=== PATIENT | female | born 1935 | race African-American/Black ===

== ENCOUNTER 2016-11-24 09:24 | Emergency (ER) | payer MEDICARE, OTHER ==
[~2016-11-24] VITALS: Ht 149.9 cm; Wt 98.0 kg
[~2016-11-24 09:24] MED LIST: ALEN70TA13 PO; GABA-531 PO; METO25TA6 PO; MIR25 PO; MONT10TA21 PO; NIFE90TA43 PO; OMEP20CA10 PO; TRAM50TA3 PO; fish oil; methimazole PO
[2016-11-24] MEDS ORDERED: KETOROLAC 60MG/2ML VIAL IM ONE (13:45)
[2016-11-24 14:29] VITALS: BP 122/51
== END 2016-11-24 15:04 | disposition home or self-care (01) ==
LOC: ER 10:56
DX: M25.511 Pain in right shoulder (principal); M79.642 Pain in left hand; Z88.6 Allergy status to analgesic agent; Z79.899 Other long term (current) drug therapy; M19.90 Unspecified osteoarthritis, unspecified site; I10 Essential (primary) hypertension; M54.2 Cervicalgia
CPT/HCPCS: 72125; 73030; 73110; 73130; 96372; 99284; J1885

== ENCOUNTER 2017-01-01 17:40 | Emergency (ER) | payer MEDICARE, OTHER ==
[~2017-01-01] VITALS: Ht 149.9 cm; Wt 141.0 kg
[2017-01-01] MEDS ORDERED: CEPHALEXIN 500MG CAPSULE PO ONE (18:15)
[2017-01-01] MEDS ORDERED: HYDROCODONE/ACETAMINOPHEN 5/325MG TABLET PO ONE (18:15)
[2017-01-01 18:43] LABS: BASOPHILS % 0.6 % (0.0-2.0); EOSINOPHILS % 3.9 % (0.0-5.0); HEMATOCRIT. 36.2 % (36.0-48.0); HEMOGLOBIN. 11.9 g/dL (12.0-16.0); LYMPHOCYTES % 32.3 % (20.0-50.0); MEAN CORPUSCULAR HEMOGLOBIN 32.5 pg (28.0-32.0); MEAN CORPUSCULAR VOLUME 98.6 fL (81.0-99.0); MONOCYTES % 11.9 % (2.0-8.0); NEUTROPHILS % 51.3 % (40.0-76.0); PLATELET 232 x1000/uL (130-400); RED BLOOD CELL COUNT 3.67 mill/uL (4.2-5.4); RED CELL DISTRIBUTION WIDTH 15.4 % (11.6-14.6); WHITE BLOOD COUNT 4.4 x1000/uL (4.5-11.0)
[2017-01-01 18:51] LABS: CHLORIDE 106 mEq/L (98-107); INDEX HEMOLYSI 1 (1-3); INDEX ICTERIC 1 (1-4); INDEX LIPEMIC 1 (1-3); PARTIAL THROMBOPLASTIN TIME 27.1 sec (24.0-34.0); PROTHROMBIN TIME 10.6 sec
[2017-01-01 18:59] LABS: ALANINE AMINOTRANSFERASE 19 IU/L (13-61); ALBUMIN 3.3 g/dL (3.4-5.0); ANION GAP 10; CALCIUM 9.2 mg/dL (8.5-10.1); CARBON DIOXIDE 31 mEq/L (21-32); UREA NITROGEN BLOOD 21 mg/dL (7-21); eGFR > 60 mL/min (>60)
[2017-01-01 21:11] VITALS: BP 162/70
== END 2017-01-01 21:14 | disposition home or self-care (01) ==
LOC: ER 18:17
DX: L02.512 Cutaneous abscess of left hand (principal); L02.511 Cutaneous abscess of right hand; G56.03 Carpal tunnel syndrome, bilateral upper limbs; Z88.6 Allergy status to analgesic agent; Z79.899 Other long term (current) drug therapy; I10 Essential (primary) hypertension; M19.90 Unspecified osteoarthritis, unspecified site
CPT/HCPCS: 36415; 80053; 85025; 85610; 85651; 85730; 99284

== ENCOUNTER 2017-06-26 15:36 | Emergency (ER) | payer MEDICARE, OTHER ==
[~2017-06-26] VITALS: Ht 149.9 cm; Wt 101.0 kg
[~2017-06-26 15:36] MED LIST changes: -ALEN70TA13 PO; +ALEN70TA46 PO
[2017-06-26] MEDS ORDERED: ACETAMINOPHEN 500MG TABLET PO ONE (17:15)
[2017-06-26 18:34] VITALS: BP 135/69
== END 2017-06-26 18:34 | disposition home or self-care (01) ==
LOC: ER 16:16
DX: M19.042 Primary osteoarthritis, left hand (principal); M19.041 Primary osteoarthritis, right hand; R03.0 Elevated blood-pressure reading, without diagnosis of hypertension; Z90.710 Acquired absence of both cervix and uterus; Z88.8 Allergy status to other drugs, medicaments and biological substances; Z79.899 Other long term (current) drug therapy
CPT/HCPCS: 99283

== ENCOUNTER 2021-03-20 10:30 | Inpatient (IN) | payer OTHER ==
[~2021-03-20] VITALS: Ht 149.9 cm; Wt 79.8 kg
[~2021-03-20 10:30] MED LIST changes: -ALEN70TA46 PO; +ALEN70TA79 PO; -GABA-531 PO; +GABA-532 PO; -OMEP20CA10 PO; +OMEP20CA14 PO
[2021-03-20] MEDS ORDERED: ASPIRIN 81MG TABLET PO ONE (11:15)
[2021-03-20] MEDS ORDERED: DILTIAZEM HCL 5MG/ML 5ML VIAL IV ONE (11:15)
[2021-03-20 11:42] LABS: BASOPHILS % 0.7 % (0.0-2.0); EOSINOPHILS % 0.2 % (0.0-5.0); HEMATOCRIT. 35.7 % (36.0-48.0); HEMOGLOBIN. 11.8 g/dL (12.0-16.0); MEAN CORPUSCULAR HEMOGLOBIN 31.7 pg (28.0-32.0); MEAN CORPUSCULAR VOLUME 95.3 fL (81.0-99.0); MEAN PLATELET VOLUME 8.9 fl (7.4-10.4); MONOCYTES % 9.2 % (2.0-8.0); NEUTROPHILS % 73.9 % (40.0-76.0); PLATELET 330 x1000/uL (130-400); RED BLOOD CELL COUNT 3.74 mill/uL (4.2-5.4); RED CELL DISTRIBUTION WIDTH 16.7 % (11.6-14.6)
[2021-03-20] MEDS ORDERED: DILTIAZEM HCL 5MG/ML 5ML VIAL IV NR (15:30)
[2021-03-20] MEDS ORDERED: DILTIAZEM HCL 120MG CAPSULE CD 24HR PO NR (15:30)
[2021-03-20 15:57] LABS: CHLORIDE 109 mEq/L (98-107)
[2021-03-20] MEDS ORDERED: MAGNESIUM/ALUMINUM HYDROXIDE/SIMETHICONE 30ML UDC PO PRN (16:30)
[2021-03-20] MEDS ORDERED: LORAZEPAM 0.5MG TABLET PO PRN (16:30)
[2021-03-20] MEDS ORDERED: ONDANSETRON HCL 4MG/2ML INJ IV PRN (16:30)
[2021-03-20] MEDS ORDERED: ACETAMINOPHEN 650MG SUPP PR PRN (16:30)
[2021-03-20] MEDS ORDERED: CLONIDINE 0.1MG TABLET PO PRN (16:30)
[2021-03-20] MEDS ORDERED: IPRATROPIUM/ALBUTEROL 0.5-3(2.5)MG/3ML NEB NEB PRN (16:30)
[2021-03-20] MEDS ORDERED: HYDROCODONE/ACETAMINOPHEN 5/325MG TABLET PO PRN (16:30)
[2021-03-20] MEDS ORDERED: DIPHENHYDRAMINE 50MG/ML VIAL IV PRN (16:30)
[2021-03-20] MEDS ORDERED: NA PHOS,M-B/NA PHOS,DI-BA ENEMA 118ML PR PRN (16:30)
[2021-03-20] MEDS ORDERED: DOCUSATE SODIUM 100MG CAPSULE PO PRN (16:30)
[2021-03-20] MEDS ORDERED: GUAIFENESIN 200MG/10ML SUGAR FREE UDC PO PRN (16:30)
[2021-03-20] MEDS ORDERED: ACETAMINOPHEN 325MG TABLET PO PRN (16:30)
[2021-03-20] MEDS ORDERED: CEFTRIAXONE 1 G PREMIX 50 ML IV SCH (17:00)
[2021-03-20] MEDS ORDERED: NALOXONE HCL 0.4MG/ML VIAL IV PRN (17:00)
[2021-03-20] MEDS: PANTOPRAZOLE SODIUM 40 MG/VIAL IV SCH (17:21)
[2021-03-20] MEDS: DEXAMETHASONE 10 MG/ML VIAL IV SCH (17:21)
[2021-03-20] MEDS ORDERED: DILTIAZEM HCL 125 MG in DEXT 5% WATER 100 ML IV PRN ×2 (17:27→18:00)
[2021-03-20] MEDS ORDERED: FUROSEMIDE 40MG/4ML VIAL IVP SCH (17:30)
[2021-03-20 17:55] LABS: BG CARBOXYHEMOGLOBIN 0.4 % (0.5-1.5); BG DEOXYHEMOGLOBIN 3.2 % (0.0-5.0); BG FRACTION INSPIRED OXYGEN 32; BG OXYGEN SATURATION 96.8 % (92.0-98.5); BG OXYHEMOGLOBIN 96.4 % (94.0-97.0); BG PCO2 56.3 mmHg (35.0-45.0); BG PO2 93.8 mmHg (75.0-100.0); BG SAMPLE SITE RIGHT RADIAL; BG TOTAL HEMOGLOBIN 12.7 g/dL (12.0-18.0); BG VENT MODE NASAL CANNULA
[2021-03-20] MEDS ORDERED: AZITHROMYCIN 500 MG in DEXT 5% WATER 250 ML IV SCH (18:00)
[2021-03-20] MEDS: DILTIAZEM HCL 60MG TABLET PO SCH (18:34)
[2021-03-20] MEDS: IPRATROPIUM/ALBUTEROL 0.5-3(2.5)MG/3ML NEB NEB SCH (19:42)
[2021-03-20 19:58] LABS: D-DIMER 1.81 mg/L FEU (<0.50); INR 1.2; PROTHROMBIN TIME 12.7 sec (9.6-11.0)
[2021-03-20 20:25] LABS: T4 FREE 1.28 ng/dL (0.76-1.46)
[2021-03-20] MEDS: ENOXAPARIN 80MG/0.8ML SYR SUBCUT SCH (22:11)
[2021-03-20] MEDS: FUROSEMIDE 40MG/4ML VIAL IVP SCH (22:11)
[2021-03-20 23:25] LABS: CREATINE KINASE MB FRACTION < 1.0 ng/mL (0.5-3.6)
[2021-03-20 23:26] LABS: CREATINE KINASE 40 IU/L (26-192)
[2021-03-21] MEDS: DILTIAZEM HCL 60MG TABLET PO SCH ×4 (00:26→18:00)
[2021-03-21] MEDS: IPRATROPIUM/ALBUTEROL 0.5-3(2.5)MG/3ML NEB NEB SCH ×4 (02:38→19:46)
[2021-03-21 04:37] LABS: BASOPHILS % 0.3 % (0.0-2.0); HEMATOCRIT. 35.1 % (36.0-48.0); HEMOGLOBIN. 11.7 g/dL (12.0-16.0); LYMPHOCYTES % 10.4 % (20.0-50.0); MEAN CORPUSCULAR HEMOGLOBIN 31.5 pg (28.0-32.0); MEAN CORPUSCULAR VOLUME 94.6 fL (81.0-99.0); MEAN PLATELET VOLUME 8.8 fl (7.4-10.4); MONOCYTES % 2.8 % (2.0-8.0); NEUTROPHILS % 86.5 % (40.0-76.0); PLATELET 288 x1000/uL (130-400); RED BLOOD CELL COUNT 3.72 mill/uL (4.2-5.4); RED CELL DISTRIBUTION WIDTH 16.7 % (11.6-14.6)
[2021-03-21 04:46] LABS: INR 1.2
[2021-03-21 04:47] LABS: CHLORIDE 101 mEq/L (98-107)
[2021-03-21 04:57] LABS: LDL CHOLESTEROL 77 mg/dL (5-100)
[2021-03-21 04:59] LABS: HDL CHOLESTEROL 53 mg/dL (40-59)
[2021-03-21 05:02] LABS: CREATINE KINASE 30 IU/L (26-192); CREATINE KINASE MB FRACTION < 1.0 ng/mL (0.5-3.6); T4 FREE 1.33 ng/dL (0.76-1.46)
[2021-03-21 05:08] LABS: TOTAL IRON BINDING CAPACITY 287 ug/dL (250-450)
[2021-03-21 05:24] LABS: FERRITIN 104 ng/mL (10-291)
[2021-03-21 07:36] LABS: VITAMIN B12 SERUM 725 pg/mL (211-911)
[2021-03-21] MEDS: DEXAMETHASONE 10 MG/ML VIAL IV SCH (10:12)
[2021-03-21] MEDS: PANTOPRAZOLE SODIUM 40 MG/VIAL IV SCH (10:14)
[2021-03-21] MEDS: FUROSEMIDE 40MG/4ML VIAL IVP SCH (10:16)
[2021-03-21 10:36] LABS: BG BASE EXCESS 8.2 mmol/L (-2.0-2.0); BG CARBOXYHEMOGLOBIN 0.3 % (0.5-1.5); BG DEOXYHEMOGLOBIN 5.5 % (0.0-5.0); BG FRACTION INSPIRED OXYGEN 40; BG HCO3 ACT 33.9 mmol/L (22.0-26.0); BG OXYGEN SATURATION 94.5 % (92.0-98.5); BG OXYHEMOGLOBIN 94.2 % (94.0-97.0); BG PCO2 52.2 mmHg (35.0-45.0); BG PH 7.431 (7.350-7.450); BG PO2 72.9 mmHg (75.0-100.0); BG SAMPLE SITE RIGHT RADIAL; BG TOTAL HEMOGLOBIN 12.5 g/dL (12.0-18.0); BG VENT MODE MASK - BIPAP
[2021-03-21] MEDS ORDERED: POTASSIUM CHLORIDE 20MEQ TABLET SR PO NR (15:00)
[2021-03-21] MEDS ORDERED: MAGNESIUM 1 G PREMIX 100 ML IV SCH (15:00)
[2021-03-21] MEDS: CEFTRIAXONE 1,000 MG in DEXTROSE 5% WATER 50 ML IV SCH (20:24)
[2021-03-21] MEDS: AZITHROMYCIN 500 MG in DEXT 5% WATER 250 ML IV SCH (23:59)
[2021-03-22] VITALS (7 sets, daily range): BP systolic 109–142; BP diastolic 56–88
[2021-03-22] MEDS: ENOXAPARIN 80MG/0.8ML SYR SUBCUT SCH (01:30)
[2021-03-22] MEDS: FUROSEMIDE 40MG/4ML VIAL IVP SCH ×3 (01:30→20:51)
[2021-03-22] MEDS: DILTIAZEM HCL 60MG TABLET PO SCH ×5 (01:31→23:34)
[2021-03-22] MEDS: IPRATROPIUM/ALBUTEROL 0.5-3(2.5)MG/3ML NEB NEB SCH ×4 (02:25→15:04)
[2021-03-22 08:16] LABS: HEMATOCRIT. 35.2 % (36.0-48.0); HEMOGLOBIN. 11.6 g/dL (12.0-16.0); MEAN CORPUSCULAR HEMOGLOBIN 31.3 pg (28.0-32.0); MEAN CORPUSCULAR VOLUME 94.9 fL (81.0-99.0); MEAN PLATELET VOLUME 9.1 fl (7.4-10.4); PLATELET 274 x1000/uL (130-400); RED BLOOD CELL COUNT 3.71 mill/uL (4.2-5.4); RED CELL DISTRIBUTION WIDTH 16.8 % (11.6-14.6)
[2021-03-22 08:35] LABS: CHLORIDE 100 mEq/L (98-107)
[2021-03-22] MEDS: PANTOPRAZOLE SODIUM 40 MG/VIAL IV SCH (09:58)
[2021-03-22] MEDS: DEXAMETHASONE 10 MG/ML VIAL IV SCH (09:58)
[2021-03-22] MEDS: MIDODRINE HCL 2.5MG TABLET PO SCH ×2 (15:30→22:00)
[2021-03-22 16:33] LABS: BG BASE EXCESS 6.3 mmol/L (-2.0-2.0); BG CARBOXYHEMOGLOBIN 0.5 % (0.5-1.5); BG DEOXYHEMOGLOBIN 7.6 % (0.0-5.0); BG FRACTION INSPIRED OXYGEN 21; BG HCO3 ACT 30.5 mmol/L (22.0-26.0); BG METHEMOGLOBIN 0.3 % (0.0-1.5); BG OXYGEN SATURATION 92.3 % (92.0-98.5); BG OXYHEMOGLOBIN 91.6 % (94.0-97.0); BG PCO2 42.3 mmHg (35.0-45.0); BG PH 7.476 (7.350-7.450); BG PO2 61.1 mmHg (75.0-100.0); BG SAMPLE SITE RIGHT RADIAL; BG TOTAL HEMOGLOBIN 13.5 g/dL (12.0-18.0); BG VENT MODE ROOM AIR
[2021-03-22] MEDS: CEFTRIAXONE 1,000 MG in DEXTROSE 5% WATER 50 ML IV SCH (18:23)
[2021-03-22] MEDS: FAMOTIDINE 20MG/2ML VIAL IV SCH (20:51)
[2021-03-22] MEDS: AZITHROMYCIN 500 MG in DEXT 5% WATER 250 ML IV SCH (20:51)
[2021-03-22] MEDS: DEXT 5%/0.45% NACL 1000ML 1,000 ML IV SCH (23:34)
[2021-03-23] VITALS (18 sets, daily range): BP systolic 104–156; BP diastolic 59–90
[2021-03-23] MEDS: MIDODRINE HCL 2.5MG TABLET PO SCH ×3 (05:14→21:55)
[2021-03-23] MEDS: DILTIAZEM HCL 60MG TABLET PO SCH ×3 (06:00→17:25)
[2021-03-23 06:07] LABS: INR 1.1; PROTHROMBIN TIME 11.8 sec (9.6-11.0)
[2021-03-23 06:19] LABS: HEMOGLOBIN. 11.9 g/dL (12.0-16.0); MEAN CORPUSCULAR HEMOGLOBIN 31.2 pg (28.0-32.0); MEAN CORPUSCULAR VOLUME 94.9 fL (81.0-99.0); PLATELET 279 x1000/uL (130-400); RED CELL DISTRIBUTION WIDTH 16.5 % (11.6-14.6)
[2021-03-23 06:44] LABS: CHLORIDE 99 mEq/L (98-107)
[2021-03-23] MEDS: IPRATROPIUM/ALBUTEROL 0.5-3(2.5)MG/3ML NEB NEB SCH ×3 (07:47→21:54)
[2021-03-23] MEDS ORDERED: LIDOCAINE HCL 1% 20ML VIAL (Pyxis) INJ ONE ×2 (09:02→09:10)
[2021-03-23] MEDS ORDERED: SODIUM BICARBONATE 4% (2.4MEQ) 5ML VIAL IV ONE (09:02)
[2021-03-23] MEDS ORDERED: FENTANYL CITRATE/PF 50MCG/ML 2ML VIAL ONE (09:02)
[2021-03-23] MEDS ORDERED: FENTANYL CITRATE/PF 50MCG/ML 2ML VIAL IV ONE (11:45)
[2021-03-23] MEDS: DEXAMETHASONE 10 MG/ML VIAL IV SCH (12:16)
[2021-03-23] MEDS: FUROSEMIDE 40MG/4ML VIAL IVP SCH ×2 (12:16→21:55)
[2021-03-23] MEDS: FAMOTIDINE 20MG/2ML VIAL IV SCH ×2 (12:16→21:54)
[2021-03-23] MEDS: CEFTRIAXONE 1,000 MG in DEXTROSE 5% WATER 50 ML IV SCH (17:25)
[2021-03-23] MEDS: DEXT 5%/0.45% NACL 1000ML 1,000 ML IV SCH (17:25)
[2021-03-23 18:40] LABS: PLATELET ESTIMATE NORMAL
[2021-03-23] MEDS ORDERED: IOHEXOL-300 100 ML BOTTLE ONE (19:42)
[2021-03-23 21:48] LABS: PLATELET ESTIMATE NORMAL
[2021-03-23] MEDS: AZITHROMYCIN 500 MG in DEXT 5% WATER 250 ML IV SCH (21:54)
[2021-03-24] VITALS: BP 106/44
[2021-03-24] MEDS: IPRATROPIUM/ALBUTEROL 0.5-3(2.5)MG/3ML NEB NEB SCH ×4 (02:17→21:44)
[2021-03-24 04:00] VITALS: BP 153/88
[2021-03-24] MEDS: MIDODRINE HCL 2.5MG TABLET PO SCH ×3 (05:30→21:45)
[2021-03-24] MEDS: DILTIAZEM HCL 60MG TABLET PO SCH ×4 (05:33→17:54)
[2021-03-24 07:15] LABS: CHLORIDE 94 mEq/L (98-107)
[2021-03-24 07:27] LABS: HEMATOCRIT. 36.5 % (36.0-48.0); HEMOGLOBIN. 12.1 g/dL (12.0-16.0); MEAN CORPUSCULAR VOLUME 93.5 fL (81.0-99.0); MEAN PLATELET VOLUME 8.9 fl (7.4-10.4); PLATELET 253 x1000/uL (130-400); RED CELL DISTRIBUTION WIDTH 16.1 % (11.6-14.6)
[2021-03-24 08:00] VITALS: BP 150/88
[2021-03-24] MEDS ORDERED: LIDOCAINE HCL 1% 20ML VIAL (Pyxis) INJ ONE (08:08)
[2021-03-24] MEDS: FUROSEMIDE 40MG/4ML VIAL IVP SCH ×2 (09:45→21:44)
[2021-03-24] MEDS: DEXAMETHASONE 10 MG/ML VIAL IV SCH (09:46)
[2021-03-24] MEDS: FAMOTIDINE 20MG/2ML VIAL IV SCH ×2 (09:46→21:43)
[2021-03-24 12:00] VITALS: BP 118/63
[2021-03-24] MEDS: APIXABAN 5 MG TABLET PO SCH ×2 (15:25→21:44)
[2021-03-24 16:00] VITALS: BP 113/91
[2021-03-24] MEDS: DEXT 5%/0.45% NACL 1000ML 1,000 ML IV SCH (17:54)
[2021-03-24] MEDS: CEFTRIAXONE 1,000 MG in DEXTROSE 5% WATER 50 ML IV SCH (17:54)
[2021-03-24 20:00] VITALS: BP 145/85
[2021-03-24 20:26] LABS: PLATELET ESTIMATE NORMAL
[2021-03-24] MEDS: METOPROLOL TARTRATE 25MG TABLET PO SCH (21:44)
[2021-03-24] MEDS: AZITHROMYCIN 500 MG in DEXT 5% WATER 250 ML IV SCH (21:48)
[2021-03-25] VITALS: BP 133/73
[2021-03-25] MEDS: DILTIAZEM HCL 60MG TABLET PO SCH ×4 (00:23→17:17)
[2021-03-25] MEDS: IPRATROPIUM/ALBUTEROL 0.5-3(2.5)MG/3ML NEB NEB SCH ×4 (03:03→21:13)
[2021-03-25 04:00] VITALS: BP 138/79
[2021-03-25] MEDS: MIDODRINE HCL 2.5MG TABLET PO SCH ×3 (05:20→21:18)
[2021-03-25 05:55] LABS: CHLORIDE 93 mEq/L (98-107)
[2021-03-25 06:31] LABS: BASOPHILS % 0.1 % (0.0-2.0); HEMATOCRIT. 38.7 % (36.0-48.0); LYMPHOCYTES % 7.6 % (20.0-50.0); MEAN CORPUSCULAR HEMOGLOBIN 31.6 pg (28.0-32.0); MEAN CORPUSCULAR VOLUME 94.1 fL (81.0-99.0); MEAN PLATELET VOLUME 8.7 fl (7.4-10.4); MONOCYTES % 9.8 % (2.0-8.0); NEUTROPHILS % 82.5 % (40.0-76.0); PLATELET 226 x1000/uL (130-400); RED BLOOD CELL COUNT 4.12 mill/uL (4.2-5.4); RED CELL DISTRIBUTION WIDTH 16.2 % (11.6-14.6)
[2021-03-25 08:00] VITALS: BP 134/72
[2021-03-25] MEDS: METOPROLOL TARTRATE 25MG TABLET PO SCH ×2 (08:30→21:16)
[2021-03-25] MEDS: APIXABAN 5 MG TABLET PO SCH ×2 (08:30→17:17)
[2021-03-25] MEDS: FUROSEMIDE 40MG/4ML VIAL IVP SCH (08:30)
[2021-03-25] MEDS: DEXAMETHASONE 10 MG/ML VIAL IV SCH (08:30)
[2021-03-25] MEDS: FAMOTIDINE 20MG/2ML VIAL IV SCH (08:30)
[2021-03-25 10:00] VITALS: BP 146/87
[2021-03-25] MEDS: DEXT 5%/0.45% NACL 1000ML 1,000 ML IV SCH (12:34)
[2021-03-25] MEDS ORDERED: APIX5TAB MT (15:28)
[2021-03-25] MEDS ORDERED: DILT60TA3 MT (15:28)
[2021-03-25] MEDS ORDERED: PRED10TA PO (15:28)
[2021-03-25] MEDS ORDERED: METO25TA6 PO (15:28)
[2021-03-25] MEDS ORDERED: IPRA3AMP9 NEB (15:28)
[2021-03-25] MEDS ORDERED: FLUT1AER INH (15:28)
[2021-03-25] MEDS ORDERED: FURO-151 MT (15:28)
[2021-03-25] MEDS ORDERED: COR3 MT (15:35)
[2021-03-25] MEDS ORDERED: LOSA25TA3 MT (15:35)
[2021-03-25 16:00] VITALS: BP 129/71
[2021-03-25 20:00] VITALS: BP 151/73
[2021-03-26] VITALS: BP 156/90
[2021-03-26] MEDS: DILTIAZEM HCL 60MG TABLET PO SCH ×4 (01:23→18:31)
[2021-03-26] MEDS: IPRATROPIUM/ALBUTEROL 0.5-3(2.5)MG/3ML NEB NEB SCH ×4 (02:44→20:03)
[2021-03-26 04:00] VITALS: BP 134/71
[2021-03-26] MEDS: MIDODRINE HCL 2.5MG TABLET PO SCH ×3 (05:30→21:35)
[2021-03-26 08:00] VITALS: BP 130/95
[2021-03-26 08:00] LABS: HEMATOCRIT. 36.1 % (36.0-48.0); MEAN CORPUSCULAR HEMOGLOBIN 30.9 pg (28.0-32.0); MEAN CORPUSCULAR VOLUME 92.7 fL (81.0-99.0); MEAN PLATELET VOLUME 8.9 fl (7.4-10.4); PLATELET 234 x1000/uL (130-400); RED BLOOD CELL COUNT 3.89 mill/uL (4.2-5.4); RED CELL DISTRIBUTION WIDTH 16.4 % (11.6-14.6)
[2021-03-26 08:43] LABS: CHLORIDE 93 mEq/L (98-107)
[2021-03-26] MEDS: DEXT 5%/0.45% NACL 1000ML 1,000 ML IV SCH (09:25)
[2021-03-26] MEDS: APIXABAN 5 MG TABLET PO SCH ×2 (09:26→18:31)
[2021-03-26] MEDS: FAMOTIDINE 20MG TABLET PO SCH (09:26)
[2021-03-26] MEDS: DEXAMETHASONE 4MG/ML 1ML VIAL IV SCH (09:26)
[2021-03-26] MEDS: FUROSEMIDE 40MG/4ML VIAL IVP SCH (09:26)
[2021-03-26] MEDS: METOPROLOL TARTRATE 25MG TABLET PO SCH ×2 (09:27→21:35)
[2021-03-26 10:11] LABS: PLATELET ESTIMATE NORMAL
[2021-03-26 12:00] VITALS: BP 129/69
[2021-03-26 16:00] VITALS: BP 133/79
[2021-03-26 20:00] VITALS: BP 147/71
[2021-03-27] VITALS: BP 139/79
[2021-03-27] MEDS: DILTIAZEM HCL 60MG TABLET PO SCH ×4 (00:18→17:56)
[2021-03-27] MEDS: IPRATROPIUM/ALBUTEROL 0.5-3(2.5)MG/3ML NEB NEB SCH ×4 (02:10→21:00)
[2021-03-27 04:00] VITALS: BP 142/77
[2021-03-27] MEDS: DEXT 5%/0.45% NACL 1000ML 1,000 ML IV SCH (04:44)
[2021-03-27] MEDS: MIDODRINE HCL 2.5MG TABLET PO SCH ×3 (06:20→21:08)
[2021-03-27 08:00] VITALS: BP 140/90
[2021-03-27] MEDS: FUROSEMIDE 40MG/4ML VIAL IVP SCH (08:05)
[2021-03-27] MEDS: DEXAMETHASONE 4MG/ML 1ML VIAL IV SCH (08:06)
[2021-03-27] MEDS: FAMOTIDINE 20MG TABLET PO SCH (08:06)
[2021-03-27] MEDS: METOPROLOL TARTRATE 25MG TABLET PO SCH ×2 (08:06→21:08)
[2021-03-27] MEDS: APIXABAN 5 MG TABLET PO SCH ×2 (08:06→17:56)
[2021-03-27] MEDS ORDERED: POTASSIUM CHLORIDE 20MEQ TABLET SR PO NR (11:15)
[2021-03-27 12:00] VITALS: BP 133/73
[2021-03-27 16:00] VITALS: BP 122/60
[2021-03-27 20:00] VITALS: BP 119/80
[2021-03-27 21:00] LABS: CHLORIDE 93 mEq/L (98-107)
[2021-03-28] VITALS: BP 142/87
[2021-03-28] MEDS: DILTIAZEM HCL 60MG TABLET PO SCH ×3 (00:46→14:04)
[2021-03-28] MEDS: DEXT 5%/0.45% NACL 1000ML 1,000 ML IV SCH ×2 (00:46→20:23)
[2021-03-28] MEDS: IPRATROPIUM/ALBUTEROL 0.5-3(2.5)MG/3ML NEB NEB SCH ×3 (02:50→21:48)
[2021-03-28 04:00] VITALS: BP 120/75
[2021-03-28] MEDS: MIDODRINE HCL 2.5MG TABLET PO SCH ×2 (05:38→14:04)
[2021-03-28 08:00] VITALS: BP 111/56
[2021-03-28] MEDS: METOPROLOL TARTRATE 25MG TABLET PO SCH ×2 (08:51→20:23)
[2021-03-28] MEDS: APIXABAN 5 MG TABLET PO SCH ×2 (08:52→19:20)
[2021-03-28] MEDS: FAMOTIDINE 20MG TABLET PO SCH (08:52)
[2021-03-28] MEDS: FUROSEMIDE 40MG/4ML VIAL IVP SCH (08:52)
[2021-03-28] MEDS: DEXAMETHASONE 4MG/ML 1ML VIAL IV SCH (08:52)
[2021-03-28 12:00] VITALS: BP 127/53
[2021-03-28 16:00] VITALS: BP 138/64
[2021-03-28 20:00] VITALS: BP 125/58
[2021-03-29] VITALS: BP 120/60
[2021-03-29] MEDS: DILTIAZEM HCL 60MG TABLET PO SCH ×4 (00:12→21:51)
[2021-03-29] MEDS: MIDODRINE HCL 2.5MG TABLET PO SCH ×4 (00:12→21:51)
[2021-03-29] MEDS: IPRATROPIUM/ALBUTEROL 0.5-3(2.5)MG/3ML NEB NEB SCH ×4 (03:03→19:46)
[2021-03-29 04:00] VITALS: BP 139/89
[2021-03-29 08:00] VITALS: BP 148/87
[2021-03-29] MEDS: FUROSEMIDE 40MG/4ML VIAL IVP SCH (09:31)
[2021-03-29] MEDS: APIXABAN 5 MG TABLET PO SCH ×2 (09:31→16:19)
[2021-03-29] MEDS: DEXAMETHASONE 4MG/ML 1ML VIAL IV SCH (09:31)
[2021-03-29] MEDS: FAMOTIDINE 20MG TABLET PO SCH (09:31)
[2021-03-29] MEDS: METOPROLOL TARTRATE 25MG TABLET PO SCH ×2 (09:31→21:50)
[2021-03-29 12:00] VITALS: BP 110/51
[2021-03-29 16:00] VITALS: BP 118/53
[2021-03-29] MEDS: DEXT 5%/0.45% NACL 1000ML 1,000 ML IV SCH (16:20)
[2021-03-29 20:00] VITALS: BP 115/68
[2021-03-30] VITALS: BP_SYST 126; BP_SYST 134; BP_DIAS 69; BP_DIAS 77
[2021-03-30] MEDS: IPRATROPIUM/ALBUTEROL 0.5-3(2.5)MG/3ML NEB NEB SCH ×4 (02:18→18:00)
[2021-03-30 04:00] VITALS: BP 134/69
[2021-03-30] MEDS: MIDODRINE HCL 2.5MG TABLET PO SCH ×3 (05:39→21:40)
[2021-03-30] MEDS: DILTIAZEM HCL 60MG TABLET PO SCH ×3 (06:19→21:40)
[2021-03-30 08:00] VITALS: BP 130/72
[2021-03-30] MEDS: DEXAMETHASONE 4MG/ML 1ML VIAL IV SCH (08:39)
[2021-03-30] MEDS: FUROSEMIDE 40MG/4ML VIAL IVP SCH (08:39)
[2021-03-30] MEDS: APIXABAN 5 MG TABLET PO SCH ×2 (08:40→17:44)
[2021-03-30] MEDS: METOPROLOL TARTRATE 25MG TABLET PO SCH (08:40)
[2021-03-30] MEDS: FAMOTIDINE 20MG TABLET PO SCH (08:40)
[2021-03-30 12:00] VITALS: BP 137/66
[2021-03-30] MEDS: DEXT 5%/0.45% NACL 1000ML 1,000 ML IV SCH (12:00)
[2021-03-30 16:00] VITALS: BP 145/77
[2021-03-30 20:00] VITALS: BP 119/69
[2021-03-30] MEDS: CARVEDILOL 3.125 MG TABLET PO SCH (21:40)
[2021-03-31] VITALS (8 sets, daily range): BP systolic 111–142; BP diastolic 53–77
[2021-03-31] MEDS: IPRATROPIUM/ALBUTEROL 0.5-3(2.5)MG/3ML NEB NEB SCH ×3 (03:29→21:08)
[2021-03-31] MEDS: DILTIAZEM HCL 60MG TABLET PO SCH (05:41)
[2021-03-31] MEDS: MIDODRINE HCL 2.5MG TABLET PO SCH ×2 (05:42→14:00)
[2021-03-31] MEDS: CARVEDILOL 3.125 MG TABLET PO SCH (09:00)
[2021-03-31] MEDS: DEXT 5%/0.45% NACL 1000ML 1,000 ML IV SCH (09:16)
[2021-03-31] MEDS: DEXAMETHASONE 4MG/ML 1ML VIAL IV SCH (09:16)
[2021-03-31] MEDS: FAMOTIDINE 20MG TABLET PO SCH (09:16)
[2021-03-31] MEDS: APIXABAN 5 MG TABLET PO SCH ×2 (09:16→17:33)
[2021-03-31] MEDS: FUROSEMIDE 40MG/4ML VIAL IVP SCH (09:16)
[2021-04-01] MEDS ORDERED: DEXAMETHASONE 4MG/ML 1ML VIAL IV SCH (09:00)
== END 2021-03-31 22:03 | disposition home or self-care (01) | DRG 987 ==
LOC: ER 12:01 → MICUSO 14:08 → EDBEDREQTM 14:14 → EDBEDREQ 14:14 → SUPCPDRO 16:28 → EDBEDREQSVC 22:08 → EDBEDREQTM 22:08 → MICUSO 03-21 08:28 → 6WST 03-21 20:43 → 7WST 03-21 23:12 → 7EST 03-22 23:52
PROVIDERS: ADMIT Internal Medicine; ATTEND Internal Medicine
PROC: 5A09357 Assistance with Respiratory Ventilation, Less than 24 Consecutive Hours, Continuous Positive Airway Pressure (ICD-10-PCS; 2021-03-20)
PROC: 5A09357 Assistance with Respiratory Ventilation, Less than 24 Consecutive Hours, Continuous Positive Airway Pressure (ICD-10-PCS; 2021-03-21)
PROC: 5A09357 Assistance with Respiratory Ventilation, Less than 24 Consecutive Hours, Continuous Positive Airway Pressure (ICD-10-PCS; 2021-03-22)
PROC: 02HV33Z Insertion of Infusion Device into Superior Vena Cava, Percutaneous Approach (ICD-10-PCS; principal; 2021-03-23)
PROC: 07BD3ZX Excision of Aortic Lymphatic, Percutaneous Approach, Diagnostic (ICD-10-PCS; 2021-03-23)
PROC: B548ZZA Ultrasonography of Superior Vena Cava, Guidance (ICD-10-PCS; 2021-03-23)
PROC: 5A09357 Assistance with Respiratory Ventilation, Less than 24 Consecutive Hours, Continuous Positive Airway Pressure (ICD-10-PCS; 2021-03-23)
PROC: 02HV33Z Insertion of Infusion Device into Superior Vena Cava, Percutaneous Approach (ICD-10-PCS; 2021-03-24)
PROC: B548ZZA Ultrasonography of Superior Vena Cava, Guidance (ICD-10-PCS; 2021-03-24)
PROC: B5181ZA Fluoroscopy of Superior Vena Cava using Low Osmolar Contrast, Guidance (ICD-10-PCS; 2021-03-24)
PROC: 5A09357 Assistance with Respiratory Ventilation, Less than 24 Consecutive Hours, Continuous Positive Airway Pressure (ICD-10-PCS; 2021-03-24)
PROC: 5A09357 Assistance with Respiratory Ventilation, Less than 24 Consecutive Hours, Continuous Positive Airway Pressure (ICD-10-PCS; 2021-03-25)
PROC: 5A09357 Assistance with Respiratory Ventilation, Less than 24 Consecutive Hours, Continuous Positive Airway Pressure (ICD-10-PCS; 2021-03-26)
PROC: 5A09357 Assistance with Respiratory Ventilation, Less than 24 Consecutive Hours, Continuous Positive Airway Pressure (ICD-10-PCS; 2021-03-27)
PROC: 5A09357 Assistance with Respiratory Ventilation, Less than 24 Consecutive Hours, Continuous Positive Airway Pressure (ICD-10-PCS; 2021-03-28)
PROC: 5A09357 Assistance with Respiratory Ventilation, Less than 24 Consecutive Hours, Continuous Positive Airway Pressure (ICD-10-PCS; 2021-03-29)
PROC: 5A09357 Assistance with Respiratory Ventilation, Less than 24 Consecutive Hours, Continuous Positive Airway Pressure (ICD-10-PCS; 2021-03-30)
DX: J18.9 Pneumonia, unspecified organism (principal); I50.43 Acute on chronic combined systolic (congestive) and diastolic (congestive) heart failure; J96.00 Acute respiratory failure, unspecified whether with hypoxia or hypercapnia; E05.91 Thyrotoxicosis, unspecified with thyrotoxic crisis or storm; J44.1 Chronic obstructive pulmonary disease with (acute) exacerbation; J44.0 Chronic obstructive pulmonary disease with (acute) lower respiratory infection; J98.11 Atelectasis; D68.59 Other primary thrombophilia; I42.0 Dilated cardiomyopathy; I48.20 Chronic atrial fibrillation, unspecified; J91.8 Pleural effusion in other conditions classified elsewhere; I11.0 Hypertensive heart disease with heart failure; K21.9 Gastro-esophageal reflux disease without esophagitis; J39.8 Other specified diseases of upper respiratory tract; I48.91 Unspecified atrial fibrillation; I27.20 Pulmonary hypertension, unspecified; G62.9 Polyneuropathy, unspecified; D64.9 Anemia, unspecified; M19.90 Unspecified osteoarthritis, unspecified site; Z96.659 Presence of unspecified artificial knee joint; I27.29 Other secondary pulmonary hypertension; I27.81 Cor pulmonale (chronic); I34.0 Nonrheumatic mitral (valve) insufficiency; E66.01 Morbid (severe) obesity due to excess calories; K44.9 Diaphragmatic hernia without obstruction or gangrene; Z20.822 Contact with and (suspected) exposure to COVID-19; Z79.01 Long term (current) use of anticoagulants; Z82.49 Family history of ischemic heart disease and other diseases of the circulatory system; Z85.828 Personal history of other malignant neoplasm of skin; Z86.711 Personal history of pulmonary embolism; Z87.11 Personal history of peptic ulcer disease; Z79.51 Long term (current) use of inhaled steroids; Z90.710 Acquired absence of both cervix and uterus; Z79.899 Other long term (current) drug therapy; Z88.8 Allergy status to other drugs, medicaments and biological substances; Z68.35 Body mass index [BMI] 35.0-35.9, adult
CPT/HCPCS: 36415; 36573; 36600; 49180; 71045; 71275; 74176; 76536; 77012; 80048; 80053; 80061; 82105; 82375; 82378; 82550; 82553; 82607; 82728; 82805; 83540; 83550; 83735; 83880; 84439; 84443; 84481; 84484; 85025; 85379; 86301; 86850; 86900; 87426; 88305; 93005; 93306; 93880; 93970; 94640; 94660; 97116; 97162; 97530; 99152; 99153; 99291; C1725; C1769; C9113; J0456; J0696; J1100; J1650; J1940; J3010; J3475; J3490; J7060; Q9967; U0003; U0005; G0500

== ENCOUNTER 2021-07-12 20:03 | Inpatient (IN) | payer OTHER ==
[~2021-07-12] VITALS: Ht 149.9 cm; Wt 73.5 kg
[~2021-07-12 20:03] MED LIST changes: +APIX5TAB MT; +COR3 MT; +DILT60TA3 MT; +FLUT1AER INH; +FURO-151 MT; +IPRA3AMP9 NEB; +LOSA25TA3 MT; -METO25TA6 PO; -NIFE90TA43 PO; +PRED10TA PO
[2021-07-12] MEDS ORDERED: FUROSEMIDE 40MG/4ML VIAL IV ONE (20:45)
[2021-07-12] MEDS ORDERED: DILTIAZEM HCL 5MG/ML 5ML VIAL IV ONE (20:45)
[2021-07-12] MEDS ORDERED: ASPIRIN 81MG TABLET PO ONE (20:45)
[2021-07-12 21:34] LABS: CHLORIDE 107 mEq/L (98-107)
[2021-07-12 21:38] LABS: HEMOGLOBIN. 11.2 g/dL (12.0-16.0); MEAN CORPUSCULAR HEMOGLOBIN 33.2 pg (28.0-32.0); MEAN CORPUSCULAR VOLUME 100.9 fL (81.0-99.0); MEAN PLATELET VOLUME 10.2 fl (7.4-10.4); PLATELET 219 x1000/uL (130-400); RED BLOOD CELL COUNT 3.37 mill/uL (4.2-5.4); RED CELL DISTRIBUTION WIDTH 23.1 % (11.6-14.6)
[2021-07-12 21:50] LABS: PARTIAL THROMBOPLASTIN TIME 25.9 sec (23.4-31.0); PROTHROMBIN TIME 19.9 sec (9.6-11.0)
[2021-07-12 22:36] LABS: PLATELET ESTIMATE NORMAL
[2021-07-12] MEDS ORDERED: DILTIAZEM HCL 60MG TABLET PO ONE (23:15)
[2021-07-12] MEDS: NITROGLYCERIN 0.4MG TABLET SL SL PRN ×2 (23:21→23:33)
[2021-07-13 04:00] VITALS: BP 143/83
[2021-07-13] MEDS ORDERED: CHLO4TAB PO (05:29)
[2021-07-13] MEDS ORDERED: MULT-1146 MT (05:29)
[2021-07-13] MEDS ORDERED: [UNRECOGNIZED DRUG - CODE] PO (05:29)
[2021-07-13] MEDS ORDERED: DOCU-150 MT (05:29)
[2021-07-13] MEDS ORDERED: ACET-2708 MT (05:29)
[2021-07-13] MEDS ORDERED: TUMERIC PO (05:29)
[2021-07-13] MEDS ORDERED: LACT1CAP78 MT (05:29)
[2021-07-13] MEDS ORDERED: Omega XL PO (05:29)
[2021-07-13] MEDS ORDERED: *PATIENT'S OWN MEDICATION STORAGE XX SCH (05:45)
[2021-07-13] MEDS ORDERED: CLONIDINE 0.1MG TABLET PO PRN (06:15)
[2021-07-13] MEDS ORDERED: ACETAMINOPHEN 650MG/20.3ML UDC PO PRN (06:15)
[2021-07-13 07:48] VITALS: BP 142/88
[2021-07-13] MEDS: DOCUSATE SODIUM 100MG CAPSULE PO SCH (08:55)
[2021-07-13] MEDS: FUROSEMIDE 40MG/4ML VIAL IVP SCH (08:55)
[2021-07-13] MEDS ORDERED: METOPROLOL TARTRATE 50MG TABLET PO SCH (09:00)
[2021-07-13 12:00] VITALS: BP 162/90
[2021-07-13 12:54] LABS: CLARITY URINE CLEAR (CLEAR); COLOR URINE DARK YELLOW (YELLOW); KETONES URINE NEGATIVE (NEGATIVE); LEUKOCYTE ESTERASE URINE 3+ (NEGATIVE); NITRITE URINE POSITIVE (NEGATIVE); OCCULT BLOOD URINE TRACE (NEGATIVE); PH URINE 6.5 (4.5-8.0); PROTEIN URINE NEGATIVE (NEGATIVE); SPECIFIC GRAVITY URINE 1.008 (1.005-1.030); UROBILINOGEN URINE 0.2 E.U./dL (0.2-1.0)
[2021-07-13] MEDS ORDERED: CARVEDILOL 3.125 MG TABLET PO NR (15:45)
[2021-07-13 16:00] VITALS: BP 97/55
[2021-07-13 16:00] LABS: PROTHROMBIN TIME 20.5 sec (9.6-11.0)
[2021-07-13 16:04] LABS: CHLORIDE 103 mEq/L (98-107)
[2021-07-13] MEDS: DILTIAZEM HCL 30MG TABLET PO SCH (17:33)
[2021-07-13] MEDS ORDERED: POTASSIUM CHLORIDE 20MEQ TABLET SR PO NR (18:45)
[2021-07-13] MEDS: POTASSIUM CHLORIDE 20MEQ TABLET SR PO SCH ×2 (18:55→22:01)
[2021-07-13] MEDS: CARVEDILOL 3.125 MG TABLET PO SCH (22:01)
[2021-07-14] VITALS: BP 113/53
[2021-07-14] MEDS: DILTIAZEM HCL 30MG TABLET PO SCH ×4 (00:15→17:28)
[2021-07-14 04:00] VITALS: BP 119/77
[2021-07-14 08:01] VITALS: BP 125/55
[2021-07-14] MEDS: FUROSEMIDE 40MG/4ML VIAL IVP SCH (08:31)
[2021-07-14] MEDS: DOCUSATE SODIUM 100MG CAPSULE PO SCH (08:32)
[2021-07-14] MEDS: CARVEDILOL 3.125 MG TABLET PO SCH (08:32)
[2021-07-14] MEDS ORDERED: APIXABAN 5 MG TABLET PO SCH (09:00)
[2021-07-14 11:46] VITALS: BP 126/67
[2021-07-14 16:00] VITALS: BP 157/71
[2021-07-14] MEDS ORDERED: MORPHINE SULFATE 2 MG/ML CPJ (NOT FOR IM USE) IV PRN (17:00)
[2021-07-14] MEDS ORDERED: ACETAMINOPHEN 325MG TABLET PO PRN (17:00)
[2021-07-14] MEDS ORDERED: ONDANSETRON HCL 4MG/2ML INJ IV PRN (17:00)
[2021-07-14] MEDS ORDERED: BISACODYL 10MG SUPP PR PRN (17:00)
[2021-07-14] MEDS ORDERED: IPRATROPIUM/ALBUTEROL 0.5-3(2.5)MG/3ML NEB HHN PRN (17:00)
[2021-07-14] MEDS ORDERED: ACETAMINOPHEN 650MG SUPP PR PRN (17:00)
[2021-07-14 17:22] LABS: HEMATOCRIT. 29.2 % (36.0-48.0); HEMOGLOBIN. 9.7 g/dL (12.0-16.0); MEAN CORPUSCULAR HEMOGLOBIN 32.1 pg (28.0-32.0); MEAN CORPUSCULAR VOLUME 96.9 fL (81.0-99.0); MEAN PLATELET VOLUME 9.3 fl (7.4-10.4); PLATELET 369 x1000/uL (130-400); RED BLOOD CELL COUNT 3.02 mill/uL (4.2-5.4); RED CELL DISTRIBUTION WIDTH 22.9 % (11.6-14.6)
[2021-07-14 17:30] LABS: PROTHROMBIN TIME 19.9 sec (9.6-11.0)
[2021-07-14 17:40] LABS: CHLORIDE 100 mEq/L (98-107)
[2021-07-14 18:25] LABS: PLATELET ESTIMATE NORMAL
[2021-07-14 20:00] VITALS: BP 117/58
[2021-07-14] MEDS: CARVEDILOL 6.25 MG TABLET PO SCH (21:13)
[2021-07-15] VITALS: BP 106/66
[2021-07-15 04:00] VITALS: BP 112/73
[2021-07-15] MEDS: DILTIAZEM HCL 30MG TABLET PO SCH ×4 (05:54→18:53)
[2021-07-15 07:19] LABS: INR 1.6; PROTHROMBIN TIME 16.7 sec (9.6-11.0)
[2021-07-15 07:36] LABS: T4 FREE 1.52 ng/dL (0.76-1.46)
[2021-07-15 07:57] VITALS: BP 96/61
[2021-07-15] MEDS ORDERED: POTASSIUM CHLORIDE 20MEQ/PACKET PO NR ×2 (08:45→16:00)
[2021-07-15] MEDS: CARVEDILOL 6.25 MG TABLET PO SCH ×2 (09:00→21:36)
[2021-07-15] MEDS: DOCUSATE SODIUM 100MG CAPSULE PO SCH (09:00)
[2021-07-15] MEDS: FUROSEMIDE 40MG/4ML VIAL IVP SCH (09:59)
[2021-07-15] MEDS ORDERED: MAGNESIUM 2 G PREMIX 50 ML IV SCH (10:00)
[2021-07-15] MEDS: ENOXAPARIN 80MG/0.8ML SYR SUBCUT SCH (10:31)
[2021-07-15 12:00] VITALS: BP 116/82
[2021-07-15 13:26] LABS: INR 1.7; PROTHROMBIN TIME 17.7 sec (9.6-11.0)
[2021-07-15 13:54] LABS: HEPATITIS B SURFACE ANTIGEN NEGATIVE
[2021-07-15 14:35] LABS: HEMATOCRIT. 30.5 % (36.0-48.0); HEMOGLOBIN. 10.1 g/dL (12.0-16.0); MEAN CORPUSCULAR HEMOGLOBIN 32.2 pg (28.0-32.0); MEAN CORPUSCULAR VOLUME 97.2 fL (81.0-99.0); MEAN PLATELET VOLUME 10.2 fl (7.4-10.4); PLATELET 347 x1000/uL (130-400); RED BLOOD CELL COUNT 3.14 mill/uL (4.2-5.4); RED CELL DISTRIBUTION WIDTH 22.3 % (11.6-14.6)
[2021-07-15 14:38] LABS: CHLORIDE 97 mEq/L (98-107)
[2021-07-15] MEDS ORDERED: PHYTONADIONE 10MG/ML AMP SUBCUT NR (15:30)
[2021-07-15 15:53] LABS: PLATELET ESTIMATE NORMAL
[2021-07-15 16:00] VITALS: BP 110/56
[2021-07-15] MEDS: PIPERACILLIN/TAZOBACTAM 3.375 G in DEXTROSE 5% WATER 50 ML IV SCH (16:47)
[2021-07-15 20:00] VITALS: BP 112/67
[2021-07-15] MEDS ORDERED: NALOXONE HCL 0.4MG/ML VIAL IV PRN (20:30)
[2021-07-15] MEDS: LACTULOSE 20G/30ML UDC PO SCH (21:36)
[2021-07-16] VITALS (7 sets, daily range): BP systolic 92–121; BP diastolic 44–74
[2021-07-16] MEDS: DILTIAZEM HCL 30MG TABLET PO SCH ×6 (00:49→23:50)
[2021-07-16] MEDS: PIPERACILLIN/TAZOBACTAM 3.375 G in DEXTROSE 5% WATER 50 ML IV SCH ×4 (00:50→21:37)
[2021-07-16] MEDS: LACTULOSE 20G/30ML UDC PO SCH ×5 (06:00→23:50)
[2021-07-16] MEDS: FUROSEMIDE 40MG/4ML VIAL IVP SCH (08:41)
[2021-07-16] MEDS: CARVEDILOL 6.25 MG TABLET PO SCH ×2 (08:41→21:00)
[2021-07-16] MEDS: DOCUSATE SODIUM 100MG CAPSULE PO SCH (08:42)
[2021-07-16 11:39] LABS: HEMATOCRIT. 28.3 % (36.0-48.0); HEMOGLOBIN. 9.5 g/dL (12.0-16.0); MEAN CORPUSCULAR HEMOGLOBIN 32.3 pg (28.0-32.0); MEAN CORPUSCULAR VOLUME 96.6 fL (81.0-99.0); MEAN PLATELET VOLUME 9.4 fl (7.4-10.4); PLATELET 343 x1000/uL (130-400); RED BLOOD CELL COUNT 2.93 mill/uL (4.2-5.4)
[2021-07-16 11:48] LABS: CHLORIDE 95 mEq/L (98-107)
[2021-07-16] MEDS ORDERED: POTASSIUM CHLORIDE INJ 40 MEQ in DEXT 5% WATER 250 ML IV ONE (13:00)
[2021-07-16 13:42] LABS: PLATELET ESTIMATE NORMAL
[2021-07-16] MEDS ORDERED: KCL 20MEQ/100ML PREMIX 100 ML IV SCH (14:00)
[2021-07-16 16:09] LABS: INR 1.3; PROTHROMBIN TIME 13.8 sec (9.6-11.0)
[2021-07-16] MEDS ORDERED: POTASSIUM CHLORIDE 20MEQ TABLET SR PO NR (21:00)
[2021-07-17] VITALS (8 sets, daily range): BP systolic 109–125; BP diastolic 51–74
[2021-07-17] MEDS: PIPERACILLIN/TAZOBACTAM 3.375 G in DEXTROSE 5% WATER 50 ML IV SCH ×3 (05:10→21:54)
[2021-07-17] MEDS: CARVEDILOL 6.25 MG TABLET PO SCH ×2 (09:00→20:31)
[2021-07-17] MEDS: DOCUSATE SODIUM 100MG CAPSULE PO SCH (09:00)
[2021-07-17] MEDS: FUROSEMIDE 40MG/4ML VIAL IVP SCH (09:01)
[2021-07-17 09:52] LABS: HEMATOCRIT. 29.8 % (36.0-48.0); HEMOGLOBIN. 10.1 g/dL (12.0-16.0); MEAN CORPUSCULAR HEMOGLOBIN 32.8 pg (28.0-32.0); MEAN CORPUSCULAR VOLUME 96.6 fL (81.0-99.0); MEAN PLATELET VOLUME 9.1 fl (7.4-10.4); PLATELET 361 x1000/uL (130-400); RED BLOOD CELL COUNT 3.08 mill/uL (4.2-5.4); RED CELL DISTRIBUTION WIDTH 21.7 % (11.6-14.6)
[2021-07-17 09:57] LABS: CHLORIDE 95 mEq/L (98-107)
[2021-07-17 11:23] LABS: PLATELET ESTIMATE NORMAL
[2021-07-17] MEDS: DILTIAZEM HCL 30MG TABLET PO SCH ×3 (12:00→23:10)
[2021-07-17] MEDS ORDERED: FENTANYL CITRATE/PF 50MCG/ML 2ML VIAL ONE (13:29)
[2021-07-17] MEDS ORDERED: LIDOCAINE HCL 1% 20ML VIAL (Pyxis) INJ ONE (13:30)
[2021-07-17] MEDS ORDERED: IOHEXOL-300 50 ML BOTTLE IV ONE (13:30)
[2021-07-17] MEDS ORDERED: MIDODRINE HCL 5MG TABLET PO SCH (14:15)
[2021-07-17] MEDS: MIDODRINE HCL 5MG TABLET PO SCH (17:00)
[2021-07-17] MEDS: LACTULOSE 20G/30ML UDC PO SCH ×2 (17:04→21:50)
[2021-07-18 03:39] VITALS: BP 110/56
[2021-07-18] MEDS: LACTULOSE 20G/30ML UDC PO SCH ×3 (05:34→20:47)
[2021-07-18] MEDS: PIPERACILLIN/TAZOBACTAM 3.375 G in DEXTROSE 5% WATER 50 ML IV SCH ×3 (05:41→20:47)
[2021-07-18] MEDS: DILTIAZEM HCL 30MG TABLET PO SCH (05:42)
[2021-07-18 08:00] VITALS: BP 105/54
[2021-07-18 08:16] LABS: HEMATOCRIT. 29.5 % (36.0-48.0); HEMOGLOBIN. 9.9 g/dL (12.0-16.0); MEAN CORPUSCULAR VOLUME 97.9 fL (81.0-99.0); PLATELET 339 x1000/uL (130-400); RED BLOOD CELL COUNT 3.01 mill/uL (4.2-5.4); RED CELL DISTRIBUTION WIDTH 21.5 % (11.6-14.6)
[2021-07-18 08:19] LABS: CHLORIDE 88 mEq/L (98-107)
[2021-07-18 09:44] LABS: INR 1.3; PROTHROMBIN TIME 13.7 sec (9.6-11.0)
[2021-07-18] MEDS ORDERED: POTASSIUM CHLORIDE 20MEQ TABLET SR PO SCH (10:15)
[2021-07-18] MEDS: FUROSEMIDE 40MG/4ML VIAL IVP SCH (10:17)
[2021-07-18] MEDS: MIDODRINE HCL 5MG TABLET PO SCH ×3 (10:18→18:19)
[2021-07-18] MEDS: DOCUSATE SODIUM 100MG CAPSULE PO SCH (10:18)
[2021-07-18 12:00] VITALS: BP 111/56
[2021-07-18 13:25] LABS: PLATELET ESTIMATE NORMAL
[2021-07-18 16:00] VITALS: BP 116/65
[2021-07-18 20:00] VITALS: BP 119/62
[2021-07-18] MEDS ORDERED: CARVEDILOL 3.125 MG TABLET PO SCH (21:00)
[2021-07-19] VITALS: BP 144/71
[2021-07-19 03:45] VITALS: BP 131/66
[2021-07-19] MEDS: PIPERACILLIN/TAZOBACTAM 3.375 G in DEXTROSE 5% WATER 50 ML IV SCH ×3 (05:38→21:23)
[2021-07-19] MEDS: LACTULOSE 20G/30ML UDC PO SCH ×3 (05:39→21:23)
[2021-07-19 07:55] LABS: BASOPHILS % 0.4 % (0.0-2.0); EOSINOPHILS % 0.8 % (0.0-5.0); HEMATOCRIT. 27.6 % (36.0-48.0); HEMOGLOBIN. 8.8 g/dL (12.0-16.0); MEAN CORPUSCULAR HEMOGLOBIN 26.7 pg (28.0-32.0); MEAN CORPUSCULAR VOLUME 83.9 fL (81.0-99.0); MEAN PLATELET VOLUME 9.1 fl (7.4-10.4); MONOCYTES % 8.4 % (2.0-8.0); NEUTROPHILS % 74.4 % (40.0-76.0); PLATELET 174 x1000/uL (130-400); RED BLOOD CELL COUNT 3.29 mill/uL (4.2-5.4); RED CELL DISTRIBUTION WIDTH 15.6 % (11.6-14.6)
[2021-07-19 08:00] VITALS: BP 96/47
[2021-07-19 08:02] LABS: CHLORIDE 110 mEq/L (98-107)
[2021-07-19] MEDS: DOCUSATE SODIUM 100MG CAPSULE PO SCH (09:00)
[2021-07-19] MEDS: ENOXAPARIN 80MG/0.8ML SYR SUBCUT SCH (09:00)
[2021-07-19] MEDS: FUROSEMIDE 40MG/4ML VIAL IVP SCH (09:19)
[2021-07-19] MEDS: MIDODRINE HCL 5MG TABLET PO SCH ×3 (09:19→17:33)
[2021-07-19] MEDS ORDERED: POTASSIUM CHLORIDE 20MEQ TABLET SR PO NR (10:45)
[2021-07-19 12:00] VITALS: BP 112/50
[2021-07-19 16:00] VITALS: BP 98/55
[2021-07-19 19:49] VITALS: BP 97/44
[2021-07-20] VITALS (8 sets, daily range): BP systolic 102–123; BP diastolic 45–64
[2021-07-20] MEDS: LACTULOSE 20G/30ML UDC PO SCH ×3 (06:00→21:37)
[2021-07-20] MEDS: PIPERACILLIN/TAZOBACTAM 3.375 G in DEXTROSE 5% WATER 50 ML IV SCH (06:20)
[2021-07-20 06:30] LABS: HEMATOCRIT. 30.8 % (36.0-48.0); MEAN CORPUSCULAR HEMOGLOBIN 33.2 pg (28.0-32.0); MEAN CORPUSCULAR VOLUME 102.3 fL (81.0-99.0); MEAN PLATELET VOLUME 9.5 fl (7.4-10.4); PLATELET 223 x1000/uL (130-400); RED BLOOD CELL COUNT 3.01 mill/uL (4.2-5.4)
[2021-07-20 07:14] LABS: CHLORIDE 95 mEq/L (98-107)
[2021-07-20] MEDS: DOCUSATE SODIUM 100MG CAPSULE PO SCH (08:14)
[2021-07-20] MEDS: FUROSEMIDE 40MG/4ML VIAL IVP SCH (08:50)
[2021-07-20] MEDS: MIDODRINE HCL 5MG TABLET PO SCH ×3 (08:53→16:46)
[2021-07-20] MEDS ORDERED: FENTANYL CITRATE/PF 50MCG/ML 2ML VIAL ONE (10:44)
[2021-07-20] MEDS ORDERED: PROPOFOL 200MG/20ML VIAL IV ONE (10:44)
[2021-07-20] MEDS ORDERED: MIDAZOLAM HCL 2 MG/2 ML VIAL ONE (10:44)
[2021-07-20] MEDS ORDERED: DEXAMETHASONE 4MG/ML 1ML VIAL ONE (10:45)
[2021-07-20] MEDS ORDERED: ONDANSETRON HCL 4MG/2ML INJ ONE (11:14)
[2021-07-20] MEDS ORDERED: LIDOCAINE HCL 1% 20ML VIAL (Pyxis) INJ ONE (11:18)
[2021-07-20] MEDS ORDERED: IOHEXOL-300 50 ML BOTTLE IV ONE (11:18)
[2021-07-20] MEDS ORDERED: ONDANSETRON HCL 4MG/2ML INJ IV PRN (11:30)
[2021-07-20] MEDS ORDERED: MEPERIDINE HCL/PF 25MG/ML CPJ IV PRN (11:30)
[2021-07-20] MEDS ORDERED: LABETALOL 5MG/ML SYR 20 MG/4 ML SYRINGE IV PRN (11:30)
[2021-07-20] MEDS ORDERED: HYDROMORPHONE HCL/PF 2MG/ML CPJ IV PRN (11:30)
[2021-07-20] MEDS ORDERED: POTASSIUM CHLORIDE 20MEQ/PACKET PO NR (15:15)
[2021-07-20 16:01] LABS: INR 1.3; PARTIAL THROMBOPLASTIN TIME 26.3 sec (23.4-31.0); PROTHROMBIN TIME 13.4 sec (9.6-11.0)
[2021-07-20 19:47] LABS: PLATELET ESTIMATE NORMAL
[2021-07-21] VITALS: BP 115/62
[2021-07-21 04:00] VITALS: BP 115/71
[2021-07-21] MEDS: LACTULOSE 20G/30ML UDC PO SCH ×3 (07:01→21:43)
[2021-07-21 08:00] VITALS: BP 120/74
[2021-07-21] MEDS: DOCUSATE SODIUM 100MG CAPSULE PO SCH (08:23)
[2021-07-21] MEDS: FUROSEMIDE 40MG/4ML VIAL IVP SCH (08:24)
[2021-07-21] MEDS: MIDODRINE HCL 5MG TABLET PO SCH ×3 (08:27→17:51)
[2021-07-21 08:32] LABS: CHLORIDE 95 mEq/L (98-107)
[2021-07-21 08:33] LABS: HEMATOCRIT. 30.2 % (36.0-48.0); HEMOGLOBIN. 9.9 g/dL (12.0-16.0); MEAN CORPUSCULAR HEMOGLOBIN 32.7 pg (28.0-32.0); MEAN CORPUSCULAR VOLUME 99.9 fL (81.0-99.0); MEAN PLATELET VOLUME 9.5 fl (7.4-10.4); PLATELET 392 x1000/uL (130-400); RED BLOOD CELL COUNT 3.03 mill/uL (4.2-5.4); RED CELL DISTRIBUTION WIDTH 20.2 % (11.6-14.6)
[2021-07-21] MEDS: ENOXAPARIN 80MG/0.8ML SYR SUBCUT SCH (09:00)
[2021-07-21] MEDS ORDERED: POTASSIUM CHLORIDE 20MEQ/PACKET PO NR (09:30)
[2021-07-21] MEDS: CARVEDILOL 3.125 MG TABLET PO SCH ×2 (11:34→21:43)
[2021-07-21 12:00] VITALS: BP 118/67
[2021-07-21] MEDS ORDERED: MAGNESIUM 2 G PREMIX 50 ML IV NR (12:00)
[2021-07-21 16:00] VITALS: BP 124/83
[2021-07-21 16:47] LABS: CREATINE KINASE 15 IU/L (26-192)
[2021-07-21 16:50] LABS: CREATINE KINASE MB FRACTION < 1.0 ng/mL (0.5-3.6)
[2021-07-21 20:00] VITALS: BP 130/71
[2021-07-21 20:26] LABS: PLATELET ESTIMATE NORMAL
[2021-07-22] VITALS: BP 115/68
[2021-07-22 04:00] VITALS: BP 143/73
[2021-07-22] MEDS: LACTULOSE 20G/30ML UDC PO SCH ×3 (06:42→21:08)
[2021-07-22 07:47] LABS: CHLORIDE 94 mEq/L (98-107); HEMATOCRIT. 28.3 % (36.0-48.0); HEMOGLOBIN. 9.5 g/dL (12.0-16.0); MEAN CORPUSCULAR HEMOGLOBIN 33.4 pg (28.0-32.0); MEAN CORPUSCULAR VOLUME 99.9 fL (81.0-99.0); MEAN PLATELET VOLUME 9.9 fl (7.4-10.4); PLATELET 431 x1000/uL (130-400); RED BLOOD CELL COUNT 2.84 mill/uL (4.2-5.4); RED CELL DISTRIBUTION WIDTH 19.6 % (11.6-14.6)
[2021-07-22 07:53] LABS: TOTAL IRON BINDING CAPACITY 193 ug/dL (250-450)
[2021-07-22 08:07] LABS: FOLIC ACID (FOLATE) SERUM 14.9 ng/mL (>5.38)
[2021-07-22 08:30] VITALS: BP 129/69
[2021-07-22] MEDS ORDERED: POTASSIUM CHLORIDE 20MEQ/PACKET PO NR ×2 (08:45→14:00)
[2021-07-22] MEDS: DOCUSATE SODIUM 100MG CAPSULE PO SCH (09:27)
[2021-07-22] MEDS: CARVEDILOL 3.125 MG TABLET PO SCH ×2 (09:27→20:53)
[2021-07-22] MEDS: ENOXAPARIN 80MG/0.8ML SYR SUBCUT SCH (09:40)
[2021-07-22] MEDS ORDERED: DILTIAZEM HCL 30MG TABLET PO NR (10:30)
[2021-07-22 10:47] LABS: PLATELET ESTIMATE INCREASED
[2021-07-22] MEDS ORDERED: MAGNESIUM 1 G PREMIX 100 ML IV NR (11:00)
[2021-07-22] MEDS ORDERED: MORPHINE SULFATE 2 MG/ML CPJ (NOT FOR IM USE) IV NR (11:53)
[2021-07-22 12:00] VITALS: BP 118/74
[2021-07-22 12:20] LABS: BG BASE EXCESS 8.7 mmol/L (-2.0-2.0); BG CARBOXYHEMOGLOBIN 1.9 % (0.5-1.5); BG DEOXYHEMOGLOBIN 4.9 % (0.0-5.0); BG FRACTION INSPIRED OXYGEN 21; BG HCO3 ACT 32.4 mmol/L (22.0-26.0); BG METHEMOGLOBIN 0.2 % (0.0-1.5); BG PCO2 41.1 mmHg (35.0-45.0); BG PH 7.515 (7.350-7.450); BG PO2 71.7 mmHg (75.0-100.0); BG SAMPLE SITE RIGHT RADIAL; BG TOTAL HEMOGLOBIN 9.6 g/dL (12.0-18.0); BG VENT MODE ROOM AIR
[2021-07-22] MEDS: PIPERACILLIN/TAZOBACTAM 3.375 G in DEXTROSE 5% WATER 50 ML IV SCH ×2 (14:04→21:08)
[2021-07-22] MEDS: MIDODRINE HCL 5MG TABLET PO SCH ×2 (14:04→17:00)
[2021-07-22 16:00] VITALS: BP 115/73
[2021-07-22 16:37] LABS: HEMATOCRIT 28.5 % (36.0-48.0); HEMOGLOBIN 9.2 g/dL (12.0-16.0); MEAN CORPUSCULAR HEMOGLOBIN 32.6 pg (28.0-32.0); MEAN CORPUSCULAR VOLUME 100.6 fL (81.0-99.0); PLATELET 457 x1000/uL (130-400); RED BLOOD CELL COUNT 2.84 mill/uL (4.2-5.4); RED CELL DISTRIBUTION WIDTH 19.6 % (11.6-14.6)
[2021-07-22] MEDS: DILTIAZEM HCL 30MG TABLET PO SCH ×2 (18:15→20:52)
[2021-07-22 20:00] VITALS: BP 118/73
[2021-07-23] VITALS: BP 102/64
[2021-07-23 04:00] VITALS: BP 130/64
[2021-07-23] MEDS: PIPERACILLIN/TAZOBACTAM 3.375 G in DEXTROSE 5% WATER 50 ML IV SCH ×3 (06:06→21:16)
[2021-07-23] MEDS: LACTULOSE 20G/30ML UDC PO SCH ×3 (06:06→21:16)
[2021-07-23 06:44] LABS: CHLORIDE 94 mEq/L (98-107)
[2021-07-23 06:57] LABS: HEMOGLOBIN. 9.4 g/dL (12.0-16.0); MEAN CORPUSCULAR HEMOGLOBIN 34.1 pg (28.0-32.0); MEAN CORPUSCULAR VOLUME 101.5 fL (81.0-99.0); MEAN PLATELET VOLUME 9.7 fl (7.4-10.4); PLATELET 393 x1000/uL (130-400); RED BLOOD CELL COUNT 2.76 mill/uL (4.2-5.4); RED CELL DISTRIBUTION WIDTH 19.4 % (11.6-14.6)
[2021-07-23 08:01] VITALS: BP 128/67
[2021-07-23] MEDS: DILTIAZEM HCL 30MG TABLET PO SCH ×4 (08:29→21:16)
[2021-07-23] MEDS: CARVEDILOL 3.125 MG TABLET PO SCH (08:29)
[2021-07-23] MEDS: DOCUSATE SODIUM 100MG CAPSULE PO SCH (08:29)
[2021-07-23] MEDS: MIDODRINE HCL 5MG TABLET PO SCH ×3 (08:30→17:05)
[2021-07-23] MEDS: ENOXAPARIN 80MG/0.8ML SYR SUBCUT SCH (08:30)
[2021-07-23] MEDS: MORPHINE SULFATE 2 MG/ML CPJ (NOT FOR IM USE) IV PRN ×2 (08:31→21:19)
[2021-07-23 12:12] VITALS: BP 113/75
[2021-07-23] MEDS ORDERED: DILT30TA38 MT (13:32)
[2021-07-23] MEDS ORDERED: FAMO-135 PO (13:32)
[2021-07-23] MEDS ORDERED: AMOX1TAB15 MT (13:32)
[2021-07-23] MEDS ORDERED: COR6 MT (13:32)
[2021-07-23] MEDS ORDERED: MIDO5TAB4 MT (13:32)
[2021-07-23] MEDS ORDERED: LACT10SO6 MT (13:32)
[2021-07-23] MEDS ORDERED: APIX5TAB MT (13:32)
[2021-07-23] MEDS ORDERED: HYDR-4001 MT (13:34)
[2021-07-23 13:40] LABS: PLATELET ESTIMATE NORMAL
[2021-07-23] MEDS ORDERED: ENOXAPARIN 80MG/0.8ML SYR SUBCUT SCH (14:58)
[2021-07-23 16:06] VITALS: BP 130/79
[2021-07-23 20:00] VITALS: BP 124/54
[2021-07-23] MEDS: CARVEDILOL 6.25 MG TABLET PO SCH (21:16)
[2021-07-24] VITALS (7 sets, daily range): BP systolic 105–116; BP diastolic 51–71
[2021-07-24] MEDS: PIPERACILLIN/TAZOBACTAM 3.375 G in DEXTROSE 5% WATER 50 ML IV SCH (05:01)
[2021-07-24] MEDS: LACTULOSE 20G/30ML UDC PO SCH ×2 (05:56→14:36)
[2021-07-24 06:33] LABS: HEMOGLOBIN. 8.8 g/dL (12.0-16.0); MEAN CORPUSCULAR HEMOGLOBIN 34.4 pg (28.0-32.0); MEAN PLATELET VOLUME 9.5 fl (7.4-10.4); PLATELET 429 x1000/uL (130-400); RED BLOOD CELL COUNT 2.55 mill/uL (4.2-5.4); RED CELL DISTRIBUTION WIDTH 19.1 % (11.6-14.6)
[2021-07-24 06:34] LABS: CHLORIDE 93 mEq/L (98-107)
[2021-07-24] MEDS ORDERED: ENOXAPARIN 80MG/0.8ML SYR SUBCUT SCH (09:00)
[2021-07-24] MEDS: DOCUSATE SODIUM 100MG CAPSULE PO SCH ×2 (09:00→09:06)
[2021-07-24] MEDS: DILTIAZEM HCL 30MG TABLET PO SCH ×3 (09:05→17:12)
[2021-07-24] MEDS: MIDODRINE HCL 5MG TABLET PO SCH ×3 (09:06→17:12)
[2021-07-24] MEDS: CARVEDILOL 6.25 MG TABLET PO SCH (09:10)
[2021-07-24 09:13] LABS: NUCLEATED RED BLOOD CELLS 1 /100 WBC; PLATELET ESTIMATE INCREASED
[2021-07-24] MEDS ORDERED: POTASSIUM CHLORIDE 20MEQ TABLET SR PO NR (11:15)
[2021-07-24] MEDS ORDERED: METRONIDAZOLE 500MG TABLET PO SCH (14:00)
== END 2021-07-24 21:30 | DRG 374 ==
LOC: ER 20:03 → MICUSO 23:18 → EDBEDREQTM 23:21 → EDBEDREQ 23:21 → 6WST 07-13 02:48
PROVIDERS: ADMIT Internal Medicine; ATTEND Internal Medicine
PROC: 0F9930Z Drainage of Common Bile Duct with Drainage Device, Percutaneous Approach (ICD-10-PCS; principal; 2021-07-20)
PROC: 0FB93ZX Excision of Common Bile Duct, Percutaneous Approach, Diagnostic (ICD-10-PCS; 2021-07-20)
PROC: BF101ZZ Fluoroscopy of Bile Ducts using Low Osmolar Contrast (ICD-10-PCS; 2021-07-20)
DX: C78.89 Secondary malignant neoplasm of other digestive organs (principal); I50.43 Acute on chronic combined systolic (congestive) and diastolic (congestive) heart failure; K83.1 Obstruction of bile duct; K81.0 Acute cholecystitis; N39.0 Urinary tract infection, site not specified; E72.20 Disorder of urea cycle metabolism, unspecified; D68.59 Other primary thrombophilia; I48.19 Other persistent atrial fibrillation; I42.0 Dilated cardiomyopathy; C18.9 Malignant neoplasm of colon, unspecified; E44.0 Moderate protein-calorie malnutrition; J44.1 Chronic obstructive pulmonary disease with (acute) exacerbation; I11.0 Hypertensive heart disease with heart failure; I27.81 Cor pulmonale (chronic); E87.6 Hypokalemia; B95.2 Enterococcus as the cause of diseases classified elsewhere; B96.20 Unspecified Escherichia coli [E. coli] as the cause of diseases classified elsewhere; Z96.659 Presence of unspecified artificial knee joint; M19.90 Unspecified osteoarthritis, unspecified site; R74.8 Abnormal levels of other serum enzymes; E83.42 Hypomagnesemia; Z20.822 Contact with and (suspected) exposure to COVID-19; E78.5 Hyperlipidemia, unspecified; G47.30 Sleep apnea, unspecified; E80.6 Other disorders of bilirubin metabolism; I34.0 Nonrheumatic mitral (valve) insufficiency; K86.9 Disease of pancreas, unspecified; Z79.899 Other long term (current) drug therapy; Z79.01 Long term (current) use of anticoagulants; Z68.32 Body mass index [BMI] 32.0-32.9, adult; Z90.710 Acquired absence of both cervix and uterus; Z87.01 Personal history of pneumonia (recurrent); Z87.11 Personal history of peptic ulcer disease; Z88.8 Allergy status to other drugs, medicaments and biological substances; Z98.891 History of uterine scar from previous surgery; R00.0 Tachycardia, unspecified
CPT/HCPCS: 36415; 36600; 47534; 71045; 71250; 74176; 74181; 76700; 77002; 80048; 80053; 80076; 81003; 82105; 82140; 82248; 82375; 82378; 82550; 82553; 82607; 82746; 82805; 83540; 83550; 83735; 83880; 84145; 84439; 84443; 84481; 84484; 85025; 85027; 86301; 86705; 86709; 86803; 86850; 86900; 87077; 87186; 87340; 87426; 88305; 93005; 93306; 93970; 97110; 97162; 99285; A6261; C1725; C1766; C1769; C1893; J1100; J1650; J1940; J2250; J2270; J2405; J2543; J2704; J3010; J3430; J3475; J3480; J3490; J7040; J7060; Q9967

== ENCOUNTER 2021-08-05 18:16 | Inpatient (IN) | payer MEDICARE, OTHER ==
[~2021-08-05] VITALS: Ht 165.1 cm; Wt 90.4 kg
[~2021-08-05 18:16] MED LIST changes: +ACET-2708 MT; +AMOX1TAB15 MT; +CHLO4TAB PO; +COR6 MT; +DILT30TA38 MT; +DOCU-150 MT; +FAMO-135 PO; +HYDR-4001 MT; +LACT10SO6 MT; +LACT1CAP78 MT; +MIDO5TAB4 MT; +MULT-1146 MT; +Omega XL PO; +TUMERIC PO; +[UNRECOGNIZED DRUG - CODE] PO
[2021-08-05 21:55] LABS: HEMATOCRIT. 29.8 % (36.0-48.0); HEMOGLOBIN. 10.2 g/dL (12.0-16.0); MEAN CORPUSCULAR HEMOGLOBIN 36.2 pg (28.0-32.0); MEAN CORPUSCULAR VOLUME 105.8 fL (81.0-99.0); MEAN PLATELET VOLUME 8.2 fl (7.4-10.4); PLATELET 602 x1000/uL (130-400); RED BLOOD CELL COUNT 2.81 mill/uL (4.2-5.4); RED CELL DISTRIBUTION WIDTH 17.3 % (11.6-14.6)
[2021-08-05 21:58] LABS: CHLORIDE 96 mEq/L (98-107)
[2021-08-05 22:04] LABS: INR 1.3; PARTIAL THROMBOPLASTIN TIME 31.6 sec (23.4-31.0); PROTHROMBIN TIME 13.6 sec (9.6-11.0)
[2021-08-05 22:37] LABS: PLATELET ESTIMATE INCREASED
[2021-08-06] MEDS ORDERED: IBUPROFEN 400MG TABLET PO ONE (00:30)
[2021-08-06 10:45] VITALS: BP 99/51
[2021-08-06] MEDS ORDERED: NALOXONE HCL 0.4MG/ML VIAL IV PRN (11:15)
[2021-08-06] MEDS ORDERED: LORAZEPAM 2MG/ML CPJ IV PRN (11:15)
[2021-08-06] MEDS ORDERED: IPRATROPIUM/ALBUTEROL 0.5-3(2.5)MG/3ML NEB NEB PRN (11:15)
[2021-08-06] MEDS ORDERED: DIPHENHYDRAMINE 50MG/ML VIAL IV PRN (11:15)
[2021-08-06] MEDS ORDERED: MORPHINE SULFATE 2 MG/ML CPJ (NOT FOR IM USE) IV PRN (11:15)
[2021-08-06] MEDS ORDERED: ONDANSETRON HCL 4MG/2ML INJ IV PRN (11:15)
[2021-08-06 12:00] VITALS: BP 95/53
[2021-08-06] MEDS: FAMOTIDINE 20MG/2ML VIAL IV SCH (14:14)
[2021-08-06] MEDS: PIPERACILLIN/TAZOBACTAM 3.375 G in DEXTROSE 5% WATER 50 ML IV SCH ×2 (14:15→21:10)
[2021-08-06] MEDS: ENOXAPARIN 100MG/ML SYR SUBCUT SCH (15:23)
[2021-08-06] MEDS: DEXT 5%/0.9% NACL 1,000 ML IV SCH ×2 (15:25→21:09)
[2021-08-06 16:00] VITALS: BP 102/70
[2021-08-06 20:00] VITALS: BP 100/40
[2021-08-06 20:29] LABS: HEMATOCRIT. 30.6 % (36.0-48.0); MEAN CORPUSCULAR HEMOGLOBIN 35.1 pg (28.0-32.0); MEAN CORPUSCULAR VOLUME 107.6 fL (81.0-99.0); MEAN PLATELET VOLUME 7.9 fl (7.4-10.4); PLATELET 465 x1000/uL (130-400); RED BLOOD CELL COUNT 2.84 mill/uL (4.2-5.4); RED CELL DISTRIBUTION WIDTH 17.3 % (11.6-14.6)
[2021-08-06 20:31] LABS: CHLORIDE 95 mEq/L (98-107)
[2021-08-06 21:03] LABS: PLATELET ESTIMATE INCREASED
[2021-08-07] VITALS: BP 89/41
[2021-08-07] MEDS: ENOXAPARIN 100MG/ML SYR SUBCUT SCH ×2 (02:43→14:43)
[2021-08-07 04:00] VITALS: BP 91/57
[2021-08-07] MEDS: PIPERACILLIN/TAZOBACTAM 3.375 G in DEXTROSE 5% WATER 50 ML IV SCH ×3 (05:12→21:00)
[2021-08-07 08:00] VITALS: BP 96/45
[2021-08-07] MEDS: FAMOTIDINE 20MG/2ML VIAL IV SCH (09:46)
[2021-08-07 12:00] VITALS: BP 105/60
[2021-08-07 16:00] VITALS: BP 108/72
[2021-08-07] MEDS: ACETAMINOPHEN 650MG SUPP PR PRN (18:49)
[2021-08-07 20:00] VITALS: BP 91/67
[2021-08-07] MEDS: DEXT 5%/0.9% NACL 1,000 ML IV SCH (20:57)
[2021-08-08] VITALS: BP 92/50
[2021-08-08 00:46] LABS: HEMOGLOBIN. 10.4 g/dL (12.0-16.0); MEAN CORPUSCULAR HEMOGLOBIN 35.3 pg (28.0-32.0); MEAN CORPUSCULAR VOLUME 102.5 fL (81.0-99.0); MEAN PLATELET VOLUME 8.8 fl (7.4-10.4); PLATELET 461 x1000/uL (130-400); RED BLOOD CELL COUNT 2.93 mill/uL (4.2-5.4)
[2021-08-08 01:01] LABS: CHLORIDE 98 mEq/L (98-107)
[2021-08-08 01:06] LABS: LDL CHOLESTEROL 172 mg/dL (5-100)
[2021-08-08 01:08] LABS: HDL CHOLESTEROL 9 mg/dL (40-59)
[2021-08-08] MEDS: ENOXAPARIN 100MG/ML SYR SUBCUT SCH ×2 (02:54→18:27)
[2021-08-08 02:55] LABS: PLATELET ESTIMATE INCREASED
[2021-08-08 04:00] VITALS: BP 102/45
[2021-08-08] MEDS: PIPERACILLIN/TAZOBACTAM 3.375 G in DEXTROSE 5% WATER 50 ML IV SCH ×3 (05:24→21:47)
[2021-08-08 08:00] VITALS: BP 86/47
[2021-08-08] MEDS: FAMOTIDINE 20MG/2ML VIAL IV SCH (09:00)
[2021-08-08 10:39] LABS: HEMATOCRIT. 33.6 % (36.0-48.0); HEMOGLOBIN. 11.1 g/dL (12.0-16.0); MEAN CORPUSCULAR HEMOGLOBIN 35.2 pg (28.0-32.0); MEAN CORPUSCULAR VOLUME 106.5 fL (81.0-99.0); PLATELET 517 x1000/uL (130-400); RED BLOOD CELL COUNT 3.15 mill/uL (4.2-5.4); RED CELL DISTRIBUTION WIDTH 16.6 % (11.6-14.6)
[2021-08-08 11:16] LABS: CHLORIDE 96 mEq/L (98-107)
[2021-08-08 12:00] VITALS: BP 93/57
[2021-08-08] MEDS: DEXT 5%/0.9% NACL 1,000 ML IV SCH (13:15)
[2021-08-08 13:40] LABS: PLATELET ESTIMATE INCREASED
[2021-08-08 16:00] VITALS: BP 92/68
[2021-08-08] MEDS: ACETAMINOPHEN 650MG SUPP PR PRN (18:04)
[2021-08-08 20:00] VITALS: BP 106/44
[2021-08-09] VITALS (7 sets, daily range): BP systolic 82–118; BP diastolic 38–50
[2021-08-09] MEDS: ACETAMINOPHEN 650MG SUPP PR PRN ×3 (02:32→21:17)
[2021-08-09] MEDS: DEXT 5%/0.9% NACL 1,000 ML IV SCH ×2 (02:46→21:18)
[2021-08-09] MEDS: ENOXAPARIN 100MG/ML SYR SUBCUT SCH ×2 (02:46→15:45)
[2021-08-09] MEDS: PIPERACILLIN/TAZOBACTAM 3.375 G in DEXTROSE 5% WATER 50 ML IV SCH ×3 (06:10→21:18)
[2021-08-09] MEDS: FAMOTIDINE 20MG/2ML VIAL IV SCH (08:44)
[2021-08-09 10:25] LABS: CHLORIDE 100 mEq/L (98-107)
[2021-08-09 10:34] LABS: HEMATOCRIT. 34.5 % (36.0-48.0); HEMOGLOBIN. 11.3 g/dL (12.0-16.0); MEAN CORPUSCULAR HEMOGLOBIN 34.2 pg (28.0-32.0); MEAN CORPUSCULAR VOLUME 104.9 fL (81.0-99.0); MEAN PLATELET VOLUME 8.7 fl (7.4-10.4); PLATELET 476 x1000/uL (130-400); RED BLOOD CELL COUNT 3.29 mill/uL (4.2-5.4); RED CELL DISTRIBUTION WIDTH 16.4 % (11.6-14.6)
[2021-08-09 17:34] LABS: PLATELET ESTIMATE INCREASED
[2021-08-09] MEDS ORDERED: MIDODRINE HCL 5MG TABLET PO NR (22:00)
[2021-08-10] VITALS (80 sets, daily range): BP systolic 44–151; BP diastolic 22–111
[2021-08-10] MEDS: ENOXAPARIN 100MG/ML SYR SUBCUT SCH ×2 (02:27→14:38)
[2021-08-10] MEDS ORDERED: SODIUM CHLORIDE 0.9% 500 ML IV ONE (04:30)
[2021-08-10] MEDS: NOREPINEPHRINE 8 MG in DEXT 5% WATER 242 ML IV PRN ×2 (05:57→13:30)
[2021-08-10] MEDS: PIPERACILLIN/TAZOBACTAM 3.375 G in DEXTROSE 5% WATER 50 ML IV SCH ×2 (05:58→13:30)
[2021-08-10] MEDS: MIDODRINE HCL 5MG TABLET PO SCH ×2 (06:00→13:31)
[2021-08-10] MEDS: PHENYLEPHRINE 100 MG in DEXT 5% WATER 240 ML IV PRN ×2 (06:31→13:31)
[2021-08-10 08:35] LABS: CLARITY URINE TURBID (CLEAR); COLOR URINE RED (YELLOW); KETONES URINE 1+ (NEGATIVE); LEUKOCYTE ESTERASE URINE 2+ (NEGATIVE); NITRITE URINE NEGATIVE (NEGATIVE); OCCULT BLOOD URINE NEGATIVE (NEGATIVE); PH URINE 5.5 (4.5-8.0); PROTEIN URINE 1+ (NEGATIVE); SPECIFIC GRAVITY URINE 1.031 (1.005-1.030)
[2021-08-10] MEDS ORDERED: SODIUM CHLORIDE 0.9% 10ML VIAL ONE (09:06)
[2021-08-10] MEDS ORDERED: ETOMIDATE 2MG/ML 10ML VIAL IV ONE (09:06)
[2021-08-10] MEDS ORDERED: VECURONIUM BROMIDE 10 MG/VIAL IV ONE (09:06)
[2021-08-10] MEDS: DEXT 5%/0.9% NACL 1,000 ML IV SCH (09:19)
[2021-08-10] MEDS: FAMOTIDINE 20MG/2ML VIAL IV SCH (09:19)
[2021-08-10] MEDS ORDERED: VASOPRESSIN 20 UNIT in SODIUM CHLORIDE 0.9% 99 ML IV PRN (10:00)
[2021-08-10] MEDS ORDERED: EPINEPHRINE 10 MG in SODIUM CHLORIDE 0.9% 240 ML IV PRN (10:15)
[2021-08-10 10:27] LABS: BG BASE EXCESS -10.2 mmol/L (-2.0-2.0); BG CARBOXYHEMOGLOBIN 0.2 % (0.5-1.5); BG FRACTION INSPIRED OXYGEN 28; BG HCO3 ACT 14.3 mmol/L (22.0-26.0); BG METHEMOGLOBIN 0.2 % (0.0-1.5); BG OXYHEMOGLOBIN 92.6 % (94.0-97.0); BG PCO2 27.7 mmHg (35.0-45.0); BG PO2 75.8 mmHg (75.0-100.0); BG SAMPLE SITE LEFT RADIAL; BG TOTAL HEMOGLOBIN 11.9 g/dL (12.0-18.0); BG TOTAL RESPIRATORY RATE 24 b/min; BG VENT MODE NASAL CANNULA
[2021-08-10] MEDS ORDERED: PROPOFOL 10MG/ML 100ML 100 ML IV PRN (11:00)
[2021-08-10] MEDS ORDERED: MAGNESIUM 1 G PREMIX 100 ML IV NR ×2 (11:00→12:30)
[2021-08-10] MEDS ORDERED: LIDOCAINE HCL 1% 20ML VIAL (Pyxis) INJ ONE (11:03)
[2021-08-10] MEDS ORDERED: MAGNESIUM 1 G PREMIX 100 ML IV ONE (12:00)
[2021-08-10] MEDS ORDERED: DIGOXIN 500MCG/2ML AMP IV NR (12:00)
[2021-08-10] MEDS ORDERED: DILTIAZEM HCL 125 MG in DEXT 5% WATER 100 ML IV PRN (12:00)
[2021-08-10 12:49] LABS: BG CARBOXYHEMOGLOBIN 0.4 % (0.5-1.5); BG DEOXYHEMOGLOBIN 0.3 % (0.0-5.0); BG FRACTION INSPIRED OXYGEN 100; BG HCO3 ACT 12.2 mmol/L (22.0-26.0); BG METHEMOGLOBIN 0.4 % (0.0-1.5); BG OXYGEN SATURATION 99.7 % (92.0-98.5); BG OXYHEMOGLOBIN 98.9 % (94.0-97.0); BG PH 7.323 (7.350-7.450); BG PO2 347.3 mmHg (75.0-100.0); BG TOTAL HEMOGLOBIN 12.5 g/dL (12.0-18.0); BG VENT MODE VENT - AC
[2021-08-10] MEDS ORDERED: NOREPINEPHRINE 32 MG in DEXT 5% WATER 218 ML IV PRN (13:00)
[2021-08-10] MEDS ORDERED: PHENYLEPHRINE 100 MG in DEXT 5% WATER 240 ML IV PRN (13:00)
[2021-08-10 13:30] LABS: HEMATOCRIT. 35.8 % (36.0-48.0); HEMOGLOBIN. 11.2 g/dL (12.0-16.0); MEAN CORPUSCULAR HEMOGLOBIN 34.3 pg (28.0-32.0); MEAN CORPUSCULAR VOLUME 109.7 fL (81.0-99.0); MEAN PLATELET VOLUME 8.3 fl (7.4-10.4); PLATELET 600 x1000/uL (130-400); RED BLOOD CELL COUNT 3.26 mill/uL (4.2-5.4); RED CELL DISTRIBUTION WIDTH 16.1 % (11.6-14.6)
[2021-08-10 14:00] LABS: PLATELET ESTIMATE INCREASED
[2021-08-10 14:05] LABS: CHLORIDE 99 mEq/L (98-107)
[2021-08-10 14:18] LABS: PHOSPHORUS 3.2 mg/dL (2.5-4.9)
[2021-08-10] MEDS ORDERED: SODIUM BICARBONATE 8.4% 1 MEQ/ML 50ML SYR IV NR (14:30)
[2021-08-10] MEDS ORDERED: POTASSIUM CHLORIDE INJ 40 MEQ in DEXT 5% WATER 250 ML IV ONE (15:30)
[2021-08-10 17:48] LABS: CREATINE KINASE MB FRACTION 1.9 ng/mL (0.5-3.6)
[2021-08-10 18:52] LABS: BG BASE EXCESS -23.2 mmol/L (-2.0-2.0); BG CARBOXYHEMOGLOBIN 0.3 % (0.5-1.5); BG DEOXYHEMOGLOBIN 1.6 % (0.0-5.0); BG FRACTION INSPIRED OXYGEN 60; BG HCO3 ACT 4.6 mmol/L (22.0-26.0); BG METHEMOGLOBIN 0.3 % (0.0-1.5); BG OXYGEN SATURATION 98.4 % (92.0-98.5); BG OXYHEMOGLOBIN 97.8 % (94.0-97.0); BG PCO2 15.3 mmHg (35.0-45.0); BG PH 7.093 (7.350-7.450); BG PO2 142.3 mmHg (75.0-100.0); BG TOTAL HEMOGLOBIN 11.2 g/dL (12.0-18.0); BG VENT MODE VENT - AC
[2021-08-11] MEDS ORDERED: SODIUM CHLORIDE 0.9% 500 ML IV ONE (05:30)
== END 2021-08-10 20:35 | DRG 374 ==
LOC: ER 18:16 → MICUSO 23:00 → 6EST 08-06 09:56 → MICUNO 08-10 05:05 → MICUSO 08-10 18:30
PROVIDERS: ADMIT Internal Medicine; ATTEND Internal Medicine
PROC: 0BH18EZ Insertion of Endotracheal Airway into Trachea, Via Natural or Artificial Opening Endoscopic (ICD-10-PCS; principal; 2021-08-10)
PROC: 5A1935Z Respiratory Ventilation, Less than 24 Consecutive Hours (ICD-10-PCS; 2021-08-10)
PROC: 06HY33Z Insertion of Infusion Device into Lower Vein, Percutaneous Approach (ICD-10-PCS; 2021-08-10)
DX: C18.9 Malignant neoplasm of colon, unspecified (principal); J96.00 Acute respiratory failure, unspecified whether with hypoxia or hypercapnia; K83.1 Obstruction of bile duct; K85.90 Acute pancreatitis without necrosis or infection, unspecified; J69.0 Pneumonitis due to inhalation of food and vomit; T85.520A Displacement of bile duct prosthesis, initial encounter; D68.59 Other primary thrombophilia; E87.1 Hypo-osmolality and hyponatremia; J44.1 Chronic obstructive pulmonary disease with (acute) exacerbation; E72.20 Disorder of urea cycle metabolism, unspecified; I42.0 Dilated cardiomyopathy; C78.7 Secondary malignant neoplasm of liver and intrahepatic bile duct; R18.8 Other ascites; C77.2 Secondary and unspecified malignant neoplasm of intra-abdominal lymph nodes; I47.2 Ventricular tachycardia; D64.9 Anemia, unspecified; D75.839 Thrombocytosis, unspecified; I27.81 Cor pulmonale (chronic); E87.6 Hypokalemia; G47.33 Obstructive sleep apnea (adult) (pediatric); I27.21 Secondary pulmonary arterial hypertension; I48.0 Paroxysmal atrial fibrillation; R73.9 Hyperglycemia, unspecified; E78.5 Hyperlipidemia, unspecified; Z66 Do not resuscitate; I10 Essential (primary) hypertension; M19.90 Unspecified osteoarthritis, unspecified site; Z96.659 Presence of unspecified artificial knee joint; I49.3 Ventricular premature depolarization; E87.70 Fluid overload, unspecified; K82.8 Other specified diseases of gallbladder; K86.89 Other specified diseases of pancreas; Z20.822 Contact with and (suspected) exposure to COVID-19; Y83.8 Other surgical procedures as the cause of abnormal reaction of the patient, or of later complication, without mention of misadventure at the time of the procedure; I44.4 Left anterior fascicular block; Z79.01 Long term (current) use of anticoagulants; Z79.899 Other long term (current) drug therapy; Z82.49 Family history of ischemic heart disease and other diseases of the circulatory system; Z85.048 Personal history of other malignant neoplasm of rectum, rectosigmoid junction, and anus; Z87.01 Personal history of pneumonia (recurrent); Z87.11 Personal history of peptic ulcer disease; Z90.710 Acquired absence of both cervix and uterus; Z98.891 History of uterine scar from previous surgery; Z88.6 Allergy status to analgesic agent; Z87.440 Personal history of urinary (tract) infections; Y92.89 Other specified places as the place of occurrence of the external cause
CPT/HCPCS: 31500; 36415; 36600; 71045; 76705; 80053; 80061; 80076; 81003; 82140; 82248; 82375; 82550; 82553; 82805; 82962; 83735; 83880; 84100; 84443; 84484; 85025; 87426; 93005; 93970; 94002; 97162; 99285; A6261; J1160; J1650; J2370; J2543; J2704; J3475; J3480; J3490; J7040; J7042; J7050; J7060